=== PATIENT | male | born 1960 ===

== ENCOUNTER 2022-11-06 05:50 | Day surgery (SDC) | payer OTHER ==
[~2022-11-06] VITALS: Ht 177.8 cm; Wt 81.6 kg
[~2022-11-06 05:50] MED LIST: ENALAPRIL MALEAT5 MG PO
== END 2022-11-06 11:20 | disposition home or self-care (01) ==
LOC: CIR.AMB 05:50
PROVIDERS: ATTEND Orthopaedic Surgery
DX: M75.121 Complete rotator cuff tear or rupture of right shoulder, not specified as traumatic (principal); M19.011 Primary osteoarthritis, right shoulder; M75.21 Bicipital tendinitis, right shoulder; M24.111 Other articular cartilage disorders, right shoulder; Z20.822 Contact with and (suspected) exposure to COVID-19; I10 Essential (primary) hypertension